=== PATIENT | female | born 1995 | race Two or more races ===

== ENCOUNTER 2022-03-08 06:38 | Outpatient (CLI) | payer OTHER | END 2022-03-08 06:41 | disposition home or self-care (01) | LOC: LAB 06:38 | PROVIDERS: ATTEND Obstetrics & Gynecology Gynecology | DX: N39.0 Urinary tract infection, site not specified (principal); N91.4 Secondary oligomenorrhea ==

== ENCOUNTER 2022-03-08 07:25 | Outpatient (CLI) | payer OTHER | END 2022-03-08 07:26 | disposition home or self-care (01) | LOC: SONOGRAMA 07:25 | PROVIDERS: ATTEND Obstetrics & Gynecology Gynecology | DX: R10.2 Pelvic and perineal pain (principal) ==

== ENCOUNTER 2023-08-29 18:37 | Emergency (ER) | payer OTHER ==
[~2023-08-29] VITALS: Ht 167.6 cm; Wt 95.3 kg
[2023-08-29] MEDS ORDERED: KETOROLAC TROMETHAMINE 60 MG VIAL IM ONE (21:30)
[2023-08-29] MEDS ORDERED: KETO10TA2 PO ×2 (22:31→22:33)
== END 2023-08-29 23:05 | disposition home or self-care (01) ==
LOC: ER 18:37
DX: M25.571 Pain in right ankle and joints of right foot (principal); M79.671 Pain in right foot

== ENCOUNTER → 2024-12-11 06:20 | Outpatient (CLI) | payer OTHER ==
[~2024-12-11 06:20] MED LIST: KETO10TA2 PO
[2024-12-11 07:39] LABS: BASO % 0.7 % (0.1-1.2); EOS # 0.24 (0.04-0.54); EOS % 3.3 % (0.7-7.0); HEMATOCRIT 38.9 % (34.1-44.9); HEMOGLOBIN 12.8 g/dL (11.2-15.7); LYMPH # 1.98 (1.18-3.74); LYMPH % 27.4 % (19.3-53.1); MEAN CORPUSCULAR HEMOGLOBIN 28.1 pg (25.6-32.2); MONO # 0.55 (0.24-0.82); MONO % 7.6 % (4.7-12.5); NEUT # 4.38 (1.56-6.13); NEUT % 60.7 % (34.0-71.1); PLATELET COUNT 335 K/uL (163-369); RED BLOOD COUNT 4.56 M/uL (3.93-5.22); RED CELL DISTRIBUTION WIDTH 13.3 % (11.6-14.4)
[2024-12-11 07:47] LABS: PH,URINE 6.5 (5.0-8.0); URINE APPEARANCE Clear; URINE BILIRRUBIN Negative (NEGATIVE); URINE BLOOD Negative; URINE COLOR Yellow; URINE GLUCOSE Negative (NEGATIVE); URINE KETONE Trace (NEGATIVE); URINE LEUKOCYTE Small; URINE NITRATE Negative; URINE PROTEIN Negative (NEGATIVE)
[2024-12-11 07:51] LABS: URINE BACTERIA 165.2 uL (0.0-1933); URINE EPITHELIAL CELLS 7.7 uL (0.0-38.8); URINE RBC 27.1 uL (0.0-20.8); URINE WBC 227.7 uL (0.0-23.2)
[2024-12-11 08:15] LABS: ALBUMIN 3.2 gm/dL (3.4-5.0); BILIRUBIN TOTAL 0.71 mg/dL (0.3-1.2); CALCIUM 8.9 mg/dL (8.5-10.1); CREATININE SERUM 0.56 mg/dL (0.55-1.02); GFR 129.86; GLOBULINA 3.4 G/DL (2.4-3.5); POTASSIUM 4.07 mEq/L (3.5-5.1); TOTAL PROTEIN 6.6 gm/dL (6.4-8.2); TSH 2.13 uIU/mL (0.358-3.74)
[2024-12-11 08:17] LABS: URINE CAST 0.14 uL (0.0-1.40)
== END | disposition home or self-care (01) ==
LOC: LAB 06:20
PROVIDERS: ATTEND Obstetrics & Gynecology Gynecology
DX: N39.0 Urinary tract infection, site not specified (principal); E78.5 Hyperlipidemia, unspecified; E03.9 Hypothyroidism, unspecified; E55.9 Vitamin D deficiency, unspecified; A63.8 Other specified predominantly sexually transmitted diseases; A64 Unspecified sexually transmitted disease

== ENCOUNTER 2024-12-20 11:04 | Emergency (ER) | payer OTHER ==
[~2024-12-20] VITALS: Ht 167.6 cm; Wt 95.3 kg
[2024-12-20 13:49] LABS: BASO % 0.4 % (0.1-1.2); EOS # 0.01 (0.04-0.54); EOS % 0.1 % (0.7-7.0); HEMATOCRIT 41.6 % (34.1-44.9); HEMOGLOBIN 13.7 g/dL (11.2-15.7); LYMPH # 1.21 (1.18-3.74); MEAN CORPUSCULAR HEMOGLOBIN 27.9 pg (25.6-32.2); MONO # 1.05 (0.24-0.82); MONO % 7.8 % (4.7-12.5); NEUT # 11.07 (1.56-6.13); NEUT % 82.3 % (34.0-71.1); PLATELET COUNT 313 K/uL (163-369); RED BLOOD COUNT 4.91 M/uL (3.93-5.22); RED CELL DISTRIBUTION WIDTH 13.3 % (11.6-14.4)
[2024-12-20 14:02] LABS: PH,URINE 5.5 (5.0-8.0); URINE APPEARANCE Turbid; URINE BILIRRUBIN Negative (NEGATIVE); URINE BLOOD Large; URINE COLOR Yellow; URINE GLUCOSE Negative (NEGATIVE); URINE KETONE Negative (NEGATIVE); URINE LEUKOCYTE Large; URINE NITRATE Positive; URINE PROTEIN 30 (NEGATIVE); URINE UROBILINOGEN 0.2 E.U./dl
[2024-12-20 14:05] LABS: URINE RBC 143.7 uL (0.0-20.8); URINE WBC 2919.7 uL (0.0-23.2)
[2024-12-20 14:13] LABS: ALBUMIN 3.4 gm/dL (3.4-5.0); BILIRUBIN TOTAL 1.57 mg/dL (0.3-1.2); CALCIUM 8.9 mg/dL (8.5-10.1); CREATININE SERUM 0.8 mg/dL (0.55-1.02); GFR 86.04; GLOBULINA 4.5 G/DL (2.4-3.5); POTASSIUM 3.48 mEq/L (3.5-5.1); TOTAL PROTEIN 7.9 gm/dL (6.4-8.2)
[2024-12-20 14:48] LABS: URINE BACTERIA > 9821.5 uL (0.0-1933); URINE CAST 0.44 uL (0.0-1.40)
[2024-12-20] MEDS ORDERED: CEFTRIAXONE SODIUM 1,000 MG VIAL ONE (15:33)
[2024-12-20] MEDS ORDERED: BACTRIM DS TAB1 EACH PO (15:44)
[2024-12-20] MEDS ORDERED: ACETAMINOPHEN500 M1 PO (15:45)
[2024-12-20] MEDS ORDERED: CEFTRIAXONE SODIUM 1,000 MG VIAL IM ONE (15:45)
== END 2024-12-20 15:46 | disposition home or self-care (01) ==
LOC: ER 11:09
PROVIDERS: Preventive Medicine Public Health & General Preventive Medicine
DX: N39.0 Urinary tract infection, site not specified (principal)